=== PATIENT | male | born 1950 | race Caucasian/White ===

== ENCOUNTER 2018-04-18 10:05 | Inpatient (IN) ==
[2018-04-18] MEDS ORDERED: Bisacodyl 10 MG Supp RECTAL PRN (11:18)
[2018-04-18 11:33] LABS: Baso # (Auto) 0.1 th/mm3 (0.0-0.2); Eos # (Auto) 0.2 th/mm3 (0.0-0.4); Eos % (Auto) 2.1 % (0.0-4.0); Hematocrit 51.5 % (39.0-51.0); Hemoglobin 17.3 gm/dL (13.0-17.0); Lymph # (Auto) 2.5 th/mm3 (1.0-4.8); Mean Corpuscular HGB Conc 33.5 % (32.0-36.0); Mean Corpuscular Volume 92.7 fL (80.0-100.0); Mean Platelet Volume 9.8 fL (7.0-11.0); Mono # (Auto) 0.8 th/mm3 (0.0-0.9); Mono % (Auto) 7.6 % (0.0-8.0); Neut # (Auto) 6.5 th/mm3 (1.8-7.7); Neut % (Auto) 64.3 % (16.0-70.0); Platelet Count 190 th/mm3 (150-450); Red Blood Count 5.56 mil/mm3 (4.50-5.90); White Blood Count 10.1 th/mm3 (4.0-11.0)
[2018-04-18 11:43] LABS: Activated Partial Thrombo Time 26.8 sec (24.3-30.1); Prothrombin Time 10.4 sec (9.8-11.6)
[2018-04-18 12:02] LABS: Carbon Dioxide 29.4 meq/L (21.0-32.0); Potassium 4.1 meq/L (3.5-5.1)
[2018-04-18] MEDS ORDERED: fentaNYL Citrate Inj 250 MCG/5 ML Ampul ONE (12:51)
--- NOTE | 2018-04-18 14:11 | P.RAD ---
Post Procedure Progress Note - Pre Procedure Diagnosis (1) Incontinence (2) Unsteady gait - Post Procedure Diagnosis (1) Incontinence (2) Unsteady gait - Procedure Information Procedure Date: 04/18/18 Supervising Radiologist: Yoni Lang MD Estimated blood loss (mL): 1 Anesthesia: Local, Analgesia, Conscious Sedation - Plan of Activity Patient to Unit: [facility] Patient Condition: Good See PACS Report for procedural detail/treatment. Spinal Procedure Lumbar Drain L3-L4 Fluid Description: Clear Puncture Time: 13:40 Findings: Tip at T-11
--- NOTE | 2018-04-18 15:59 | IR ---
EXAM DATE: 04/18/2018 2:41 PM EDT AGE/SEX: 67 years / Male INDICATIONS: Patient presents with gait and mobility abnormalities in need of lumbar drain for [facility] evaluation of normal pressure hydrocephalus. CLINICAL DATA: This is the patient's initial encounter. Patient reports that signs and symptoms have been present for 3 weeks and indicates a pain score of 0/10. Location: , Laterality: MEDICAL/SURGICAL HISTORY: . AFIB, DM, HTN, Neuropathy. . AAA repair, Thyroidectomy, Appendecto my. COMPARISON: No prior exams available for comparison. FLUORO TIME (min): 3.1 IMAGE SERIES: 6 ACCESS SITE: L3-4 SEDATION TIME (min): 30 LUMBAR PUNCTURE TIME: 13:41 hours MEDICATION(S): 3 mg midazolam (Versed) IV 150 mcg fentanyl (Sublimaze) IV DEVICE(S): 14 Slovak lumbar drain catheter Tip at T11 . . PROCEDURE: 1. Fluoroscopically guided lumbar drain placement. 2. Conscious sedation with continuous EKG and oximetry monitoring. The risks, benefits and alternatives to the procedure were explained and verbal and written consent w as obtained. The site was prepped in sterile fashion. Full sterile technique was used, including ca p, mask, sterile gloves and gown and a large sterile sheet. Hand hygiene and 2% chlorhexidine and/or betadine/alcohol prep was utilized per protocol for cutaneous antisepsis. The skin and subcutaneous tissues were infiltrated with local anesthetic solution. With fluoroscopic guidance the lumbar thecal sac was punctured with a 14 gauge Touhy needle and a lum bar drain was placed with its tip at the level as described above and the catheter was sutured in sohail ce. CSF was identified returning from the catheter at the termination of the procedure. Conscious sedation was performed with the prescribed dosages and duration as above in the presence of an independent trained radiology nurse to assist in the monitoring of the patient. EKG and oximetry remained stable throughout the procedure. The patient tolerated the procedure well and there were n o complications. The patient was sent to post anesthesia recovery in stable condition. CONCLUSION: 1. Uncomplicated lumbar drain placement as above. Electronically signed by: Yoni Lang MD 04/18/2018 3:57 PM EDT
[2018-04-18] MEDS: Senna/Docusate Sodium 8.6/50 MG Tablet PO SCH (20:57)
[2018-04-19] MEDS ORDERED: dilTIAZem Inj 125 MG in Sodium Chlor 0.9% Inj 100 ML IV.CONT PRN (10:49)
[2018-04-19] MEDS: Senna/Docusate Sodium 8.6/50 MG Tablet PO SCH ×2 (11:00→21:13)
[2018-04-19] MEDS ORDERED: Dextrose 50% in Water 50 ML Vial IV.PUSH PRN (11:11)
--- NOTE | 2018-04-19 11:45 | P.CONCC ---
History of Present Illness Service: [facility] Consult date: 04/19/18 Requesting Physician: Juan C Mckenzie Reason for Consult: Atrial fibrillation with rapid ventricular response Primary Care Provider: UNKNOWN Chief Complaint: Nausea and vomiting History of Present Illness: 67yM admitted on 04/18/18 for elective lumbar drain placement for normal pressure hydrocephalus. The patient reports several months of feeling "off balance"/ "unsteady on my feet" as well as urinary incontinence. Yesterday, he underwent IR placement of a 14F lumbar drain with tip of catheter at T11 and reports no significant overnight events. However, he says that he has not taken his home medications since yesterday, and this morning woke up feeling diaphoretic, nauseous, and lightheaded. He vomited twice and was found to be in atrial fibrillation with rapid ventricular response; a Halicat was called and the patient was moved to the [facility]. He denies chest pain or pressure, palpitations , dyspnea, or neck/ shoulder pain. PMH: Atrial fibrillation, diabetes mellitus, hypertension, hypothyroidism PSH: Thyroidectomy, open aortic aneurysm repair, appendectomy Family history: Mother with heart disease (patient is unsure of specific diagnosis), father with hydrocephalus Social history: Former smoker, denies alcohol or illicit drug use Review of Systems Constitutional: Denies fever(s) Eyes: Denies blurry vision Ears, Nose, Mouth, and Throat: Reports poor balance Cardiovascular: Denies chest pain Respiratory: Denies shortness of breath Gastrointestinal: Reports constipation Genitourinary: Reports urinary incontinence Musculoskeletal: Denies back pain Neurologic: Reports dizziness Endocrine: Reports excessive sweating PMFSH - History History Provided By: Patient - Medical History Medical History: Medical History (Last Reviewed 04/18/18 @ 17:10 by Mounika Andujar PT) Atrial fibrillation Diabetes Hydrocephalus Hypertension Neuropathy - Surgical History Surgical History: Surgical History (Last Reviewed 04/18/18 @ 17:10 by Mounika Andujar PT) H/O thyroidectomy History of appendectomy S/P AAA repair - Tobacco History Second Hand Smoke Exposure: No Tobacco Use In Past 30 Days: No Smoking Status: Former smoker - Alcohol History How Often Do You Have a Drink Containing Alcohol: Monthly or less - Substance Use History Substance History: No History of Abuse - Travel History Recent Travel in the [facility] Within the Last 8 Weeks: No Recent Travel Out of the Country Within the Last 8 Weeks: No Medications and Allergies Active Medications: Active Medications Acetaminophen/Butalbital/Caffeine (Fioricet 50-325-40) 1 tab PO Q6H PRN PRN Reason: HEADACHE Al Hydroxide/Mg Hydroxide (Milk Of Magnesia Liq) 30 ml PO Q12H PRN PRN Reason: Mild Constipation Bisacodyl (Dulcolax Supp) 10 mg RECTAL DAILY PRN PRN Reason: SEVERE CONSITIPATION Dextrose (D50w Vial) 50 ml IV.PUSH UNSCH PRN PRN Reason: PER HYPOGLYCEMIA PROTOCOL Diltiazem HCl (Cardizem) 30 mg PO QID [facility] Gabapentin (Neurontin) 300 mg PO TID [facility] Glucagon (Glucagon Inj) 1 mg OTHER PRN PRN PRN Reason: for Hypoglycemia Protocol Insulin Human Regular (Novolin R Correctional Sugar Inj) 0 units SQ ACHS HAFSA; Protocol Lactulose (Lactulose Liq) 30 ml PO DAILY PRN PRN Reason: SEVERE CONSITIPATION Metoclopramide HCl (Reglan Inj) 5 mg IV.PUSH Q8H PRN; Protocol PRN Reason: NAUSEA OR VOMITING Non-Formulary Medication (Levothyroxine [Levothyroxine]) 125 mcg PO DAILY [facility] Non-Formulary Medication (Metoprolol Succinate [Metoprolol Succinate]) 100 mg PO BID [facility] Senna/Docusate Sodium (Olivia-Colace) 1 tab PO BID [facility] Last Admin: 04/19/18 11:00 Dose: Not Given Sennosides (Senokot) 17.2 mg PO Q12H PRN PRN Reason: Moderate Constipation Allergies Allergy/AdvReac Type Severity Reaction Status Date / Time No Known Allergies Allergy Unverified 04/18/18 10:49 Home Medications Medication Instructions Recorded Confirmed Type apixaban [Eliquis] 5 mg PO BID 04/18/18 04/18/18 History diltiazem HCl 30 mg PO QID 04/18/18 04/18/18 History exenatide microspheres [Bydureon] 2 mg SUB-Q Q7D 04/18/18 04/18/18 History gabapentin 300 mg PO TID 04/18/18 04/18/18 History insulin detemir U-100 [Levemir 48 unit SUB-Q DAILY 04/18/18 04/18/18 History U-100 Insulin] levothyroxine 125 mcg PO DAILY 04/18/18 04/18/18 History metformin 1,000 mg PO BID 04/18/18 04/18/18 History metoprolol succinate 100 mg PO BID 04/18/18 04/18/18 History Physical Exam Vital signs: Vital Signs 04/18/18 14:10 04/18/18 14:25 04/18/18 16:00 Temperature 98.6 F 97.1 F L Pulse Rate 95 H 76 99 H Respiratory Rate 20 18 20 Blood Pressure 131/96 H 157/91 H 135/90 Pulse Oximetry 94 L 95 96 04/18/18 20:00 04/19/18 00:00 04/19/18 04:00 Temperature 98.2 F 98 F 98.1 F Pulse Rate 111 H 83 105 H Respiratory Rate 20 20 20 Blood Pressure 162/96 H 154/96 H 159/103 H Pulse Oximetry 99 96 98 04/19/18 08:00 Temperature 98.7 F Pulse Rate 74 Respiratory Rate 18 Blood Pressure 159/85 H Pulse Oximetry 96 Intake & Output 04/18/18 04/19/18 04/19/18 18:59 06:59 18:59 Intake Total 240 / 240 Output Total 217 / 217 625 / 625 80 / 80 Balance -625 / -625 -80 / -80 Weight 104.326 kg Intake: Oral 240 / 240 Output: Urine 202 / 202 600 / 600 Wound Drainage 80 / 80 Left Lower Back 80 / 80 Other: # Voids 1 Weight On Admission 104.326 kg Narrative: GEN: Lying in right lateral recumbent position, no acute distress HEENT: NCAT, PERRL NECK: Trachea midline CARDIO: Well-healed midline sternotomy scar. Irregularly irregular, tachy to 130s-140s PULM: Clear to auscultation bilaterally, no wheezing ABD/GI: Soft, non-tender in all quadrants EXT: No lower extremity edema, warm and well-perfused SKIN: No rashes or lesions noted NEURO: A&Ox3, speech clear and fluent, answers questions appropriately. Lumbar drain present with clean/ dry/ intact bandages, clear CSF noted in bag. PSYCH: Appropriate affect Assessment and Plan - Assessment and Plan Plan: EKG Interpretation Rate: 100-150 BPM Rhythm: Atrial fibrillation Mosby: Normal Intervals: No blocks, QTc 440 ms Q waves: None T waves: Inverted in III, aVF ST segments: <1 mm depressions in V3-V6, no reciprocal elevations Impression: Atrial fibrillation with rapid ventricular response, no previous EKG available for comparison. Assessment: 67yM with known history of A fib, now in A fib with RVR s/p lumbar drain for NPH Plan by systems: Neuro: * Lumbar drain in place, ordered to be clamped PRN to maintain no more than 80 mL of drainage in an 8 hour period, leveled at shoulder * Patient complaining of headache and nausea, will order PRN reglan/ fioricet * Continue home dose of gabapentin for neuropathic pain Cardio: * surveillance system monitor * IV diltiazem bolus followed by gtt to maintain HR <100 BPM, restart home PO diltiazem/ metoprolol * Patient reports no chest pain/pressure, RVR likely related to missed doses of home meds Pulm: * Incentive spirometer F/E/N: * Diabetic diet * Hold home metformin, SSI * Check FSBG now Renal/ : * No acute issues Endo: * SSI * Continue home dose of levothyroxine PROPHY: * No indication for GI prophylaxis as patient is tolerating PO * SCDs, hold DVT prophylaxis until cleared by IR/ neurosurg Overall: This patient requires intensive care for atrial fibrillation with rapid ventricular response. He will need titratable IV medications, cardiac monitoring, and re-evaluation at frequent intervals to control his HR and prevent further decompensation. Counseling/ Coordination of Care: Total critical care time spent is 50 minutes. This includes examining the patient, gathering history from someone other than the patient (i.e. chart review), managing the patient's blood pressure and heart rate via titratable drip(s), ordering and interpreting radiologic studies, ordering and interpreting laboratory values, re-evaluation at frequent intervals, and documentation. Amount of time is separate from teaching, counseling the patient and/or family, and exclusive of procedures. Code Status: Full
[2018-04-19 12:21] LABS: Baso # (Auto) 0.1 th/mm3 (0.0-0.2); Baso % (Auto) 0.8 % (0.0-2.0); Eos % (Auto) 0.2 % (0.0-4.0); Hematocrit 51.8 % (39.0-51.0); Hemoglobin 17.7 gm/dL (13.0-17.0); Lymph # (Auto) 1.2 th/mm3 (1.0-4.8); Mean Corpuscular HGB Conc 34.2 % (32.0-36.0); Mean Corpuscular Hemoglobin 31.1 pg (27.0-34.0); Mean Corpuscular Volume 90.9 fL (80.0-100.0); Mean Platelet Volume 9.5 fL (7.0-11.0); Mono # (Auto) 0.6 th/mm3 (0.0-0.9); Neut # (Auto) 9.2 th/mm3 (1.8-7.7); Platelet Count 172 th/mm3 (150-450); White Blood Count 11.1 th/mm3 (4.0-11.0)
[2018-04-19 12:40] LABS: Alanine Aminotransferase 35 U/L (12-78); Albumin 3.5 g/dL (3.4-5.0); Anion Gap 11 meq/L (5-15); Aspartate Aminotransferase 20 U/L (15-37); Blood Urea Nitrogen 17 mg/dL (7-18); Carbon Dioxide 27.8 meq/L (21.0-32.0); Chloride 101 meq/L (98-107); Glomerular Filtration Rate 50 mL/min (>89); Glucose,Random 178 mg/dL (74-106); Magnesium 1.8 mg/dL (1.5-2.5); Potassium 4.4 meq/L (3.5-5.1); Sodium 140 meq/L (136-145)
[2018-04-19 12:43] LABS: Alkaline Phosphatase 99 U/L (45-117); Total Protein 7.6 g/dL (6.4-8.2)
[2018-04-19] MEDS ORDERED: dilTIAZem 30 MG Tablet PO SCH (13:00)
[2018-04-19] MEDS ORDERED: Gabapentin 300 MG Capsule PO SCH (13:00)
[2018-04-19] MEDS ORDERED: Levothyroxine 125 MCG Tablet PO SCH (13:30)
[2018-04-19] MEDS: Insulin NovoLIN Regular Correctional Sugar Inj SQ SCH ×3 (13:41→21:12)
[2018-04-19] MEDS: Gabapentin 300 MG Capsule PO SCH ×2 (13:44→18:01)
[2018-04-19] MEDS: dilTIAZem 30 MG Tablet PO SCH ×3 (13:45→21:12)
[2018-04-19] MEDS: Metoprolol Tartrate 100 MG Tablet PO SCH ×2 (14:56→21:12)
--- NOTE | 2018-04-19 17:46 | ECG ---
Date Performed: 04/19/2018 Time Performed: 09:41:56 PTAGE: 67 years EKG: ATRIAL FIBRILLATION WITH RAPID VENTRICULAR RESPONSE NONSPECIFIC ST & T-WAVE ABNORMALITY CON EDUCATIONAL RESOURCE COORDINATOR INFERIOR AND ANTEROLATERAL ISCHEMIA ABNORMAL ECG NO PREVIOUS TRACING DOCTOR: Joe Muniz Interpretating Date/Time 04/19/2018 18:03:02
--- NOTE | 2018-04-19 18:01 | P.PNNS ---
Subjective Interval history: Pt awake and alert. He states he is feeling better. He had gone into RVR this morning has history of afib. He was given Cardizem IV and drip and rate controlled and now just on his oral Cardizem. Pts drain remained clamped today since he wasn't feeling well. He request medication to help him sleep tonight and states he has taken Ambien before. Physical Exam Vital signs: Vital Signs 04/18/18 20:00 04/19/18 00:00 04/19/18 04:00 Temperature 98.2 F 98 F 98.1 F Pulse Rate 111 H 83 105 H Respiratory Rate 20 20 20 Blood Pressure 162/96 H 154/96 H 159/103 H Pulse Oximetry 99 96 98 04/19/18 08:00 04/19/18 10:45 04/19/18 12:00 Temperature 98.7 F 98.8 F Pulse Rate 74 136 H 96 H Respiratory Rate 18 16 Blood Pressure 159/85 H 128/75 Pulse Oximetry 96 94 L 04/19/18 14:00 04/19/18 16:00 Temperature 98.9 F Pulse Rate 118 H 96 H Respiratory Rate 13 Blood Pressure 147/96 H Pulse Oximetry 95 Intake & Output 04/18/18 04/19/18 04/19/18 18:59 06:59 18:59 Intake Total 240 / 240 Output Total 217 / 217 625 / 625 120 / 120 Balance -625 / -625 -120 / -120 Weight 104.326 kg Intake: Oral 240 / 240 Output: Urine 202 / 202 600 / 600 Wound Drainage 120 / 120 Left Lower Back 120 / 120 Other: # Voids 1 Date of Last Bowel Movement 04/17/18 Weight On Admission 104.326 kg - Constitutional no acute distress, obese, cooperative - Routine HEENT Exam Head: Present: normocephalic, atraumatic Eye: Present: PERRL. Absent: conjunctival icterus ENT: Present: oropharynx clear - Routine Neck Exam Present: trachea midline - Routine Respiratory Exam Present: CTA bilaterally, respiratory distress, rhonchi, wheezes - Routine Cardiovascular Exam Present: S1, S2, irregularly irregular. Absent: murmur - Routine Abdominal Exam Present: soft, normoactive bowel sounds. Absent: distended, rigid - Routine Skin Exam Absent: cyanosis, erythema - Routine Neurological Exam Present: alert, oriented X3, moving all extremities, normal speech. Absent: motor deficit, altered mental status - Routine Psychiatric Exam Present: normal affect. Absent: anxious, agitated Assessment and Plan - Assessment (1) Incontinence Code(s): R32 - Unspecified urinary incontinence Status: Acute (2) Unsteady gait Code(s): R26.81 - Unsteadiness on feet Status: Acute - Plan Pt with a history of unsteady gait, urinary incontinence, and deficits with memory being evaluated for NPH s/p lumbar spinal drain placement. Pt didn't get his home meds and has a history of afib and went into RVR. P: We will reopen his drain with the parameters that were ordered initially for spinal drainage. Restart PT tomorrow am and then remove spinal drain and lay flat for 6 hours. Discussed with pt and family at bedside. Appreciate utilities manager assistance.
[2018-04-19] MEDS: Butalbital/APAP/Caff 50/325/40 MG Tablet PO PRN (18:46)
[2018-04-19] MEDS ORDERED: Zolpidem Tartrate 5 MG Tablet PO PRN (20:00)
[2018-04-19] MEDS ORDERED: Non-Formulary Drug (Metformin [Metformin] 1,000 MG) PO SCH (21:00)
--- NOTE | 2018-04-19 22:41 | ECG ---
Date Performed: 04/19/2018 Time Performed: 14:35:06 PTAGE: 67 years EKG: Atrial fibrillation with rapid ventricular response. Inferior/lateral ST-T changes are nons pecific Abnormal ECG PREVIOUS TRACING : 04/19/2018 09.41 Since the previous tracing, no significant change noted DOCTOR: Roni Roberts Interpretating Date/Time 04/19/2018 22:39:58
[2018-04-20] MEDS: Butalbital/APAP/Caff 50/325/40 MG Tablet PO PRN ×2 (03:19→09:10)
[2018-04-20 05:25] LABS: Hematocrit 52.6 % (39.0-51.0); Hemoglobin 17.8 gm/dL (13.0-17.0); Mean Corpuscular HGB Conc 33.9 % (32.0-36.0); Mean Corpuscular Hemoglobin 31.2 pg (27.0-34.0); Mean Platelet Volume 9.4 fL (7.0-11.0); Platelet Count 175 th/mm3 (150-450); Red Blood Count 5.71 mil/mm3 (4.50-5.90); Red Cell Distribution Width 13.9 % (11.6-17.2); White Blood Count 9.8 th/mm3 (4.0-11.0)
[2018-04-20 05:55] LABS: Calcium 8.8 mg/dL (8.5-10.1); Carbon Dioxide 27.4 meq/L (21.0-32.0); Magnesium 1.8 mg/dL (1.5-2.5); Potassium 4.4 meq/L (3.5-5.1)
[2018-04-20] MEDS ORDERED: Levothyroxine 125 MCG Tablet PO SCH (06:00)
[2018-04-20] MEDS: dilTIAZem 30 MG Tablet PO SCH ×3 (09:09→17:08)
[2018-04-20] MEDS: Metoprolol Tartrate 100 MG Tablet PO SCH (09:09)
[2018-04-20] MEDS: Gabapentin 300 MG Capsule PO SCH ×3 (09:09→17:08)
[2018-04-20] MEDS: Senna/Docusate Sodium 8.6/50 MG Tablet PO SCH (09:09)
[2018-04-20] MEDS: Insulin NovoLIN Regular Correctional Sugar Inj SQ SCH ×3 (09:32→17:13)
[2018-04-20 16:29] VITALS: BP 163/95; RESP 22; TEMP 98.3; O2SAT 100
[2018-04-20] MEDS ORDERED: hydrALAZINE HCl Inj 20 MG/ML Vial IV.PUSH PRN (16:34)
--- NOTE | 2018-04-20 16:40 | P.PNCC ---
Subjective Subjective Remarks/Hospital Course: 67yM admitted on 04/18/18 for elective lumbar drain placement for normal pressure hydrocephalus. The patient reports several months of feeling "off balance"/ "unsteady on my feet" as well as urinary incontinence. Yesterday, he underwent IR placement of a 14F lumbar drain with tip of catheter at T11 and reports no significant overnight events. However, he says that he has not taken his home medications since yesterday, and this morning woke up feeling diaphoretic, nauseous, and lightheaded. He vomited twice and was found to be in atrial fibrillation with rapid ventricular response; a Halicat was called and the patient was moved to the [facility]. He denies chest pain or pressure, palpitations , dyspnea, or neck/ shoulder pain. 04/20: Heart rate control much improved on Cardizem and Inderal oral medication. Atrial fibrillation is chronic. Breathing comfortably. Morning labs normal, potassium 4.4. PMH: Atrial fibrillation, diabetes mellitus, hypertension, hypothyroidism Objective Vital Signs / I&O: Vital Signs 04/19/18 18:00 04/19/18 20:00 04/19/18 22:00 Temperature 98.8 F Pulse Rate 108 H 95 H 100 H Respiratory Rate 23 Blood Pressure 160/99 H Pulse Oximetry 94 L 04/20/18 00:00 04/20/18 02:00 04/20/18 04:00 Temperature 98.6 F 98.7 F Pulse Rate 88 88 98 H Respiratory Rate 15 22 Blood Pressure 151/93 H 165/93 H Pulse Oximetry 92 L 92 L 04/20/18 06:00 04/20/18 08:00 04/20/18 10:00 Temperature 98.3 F Pulse Rate 93 H 96 H 94 H Respiratory Rate 18 Blood Pressure 162/70 H Pulse Oximetry 94 L 04/20/18 12:00 04/20/18 14:00 04/20/18 16:00 Temperature 98.2 F 98.3 F Pulse Rate 89 89 91 H Respiratory Rate 24 22 Blood Pressure 164/97 H 163/95 H Pulse Oximetry 94 L 100 Intake & Output 04/19/18 04/20/18 04/20/18 18:59 06:59 18:59 Intake Total 590 / 590 Output Total 630 / 630 430 / 430 Balance -40 / -40 -430 / -430 Weight 106.6 kg Intake: Oral 590 / 590 Output: Urine 500 / 500 350 / 350 Wound Drainage 130 / 130 80 / 80 Left Lower Back 130 / 130 80 / 80 Other: # Voids 1 Date of Last Bowel Movement 04/17/18 04/17/18 04/20/18 # Bowel Movements 0 Result Diagrams: 04/20/18 05:11 04/20/18 05:11 Objective Remarks: Narrative: GEN: Lying in right lateral recumbent position, no acute distress HEENT: NCAT, PERRL NECK: Trachea midline, no obstructive noises, airway widely patent. CARDIO: Well-healed midline sternotomy scar. Irregularly irregular, rate 90s PULM: Clear to auscultation bilaterally, no wheezing, comfortable respiratory pattern. ABD/GI: Soft, non-tender, no guarding, bowel sounds active. EXT: No lower extremity edema, warm and well-perfused SKIN: No rashes or lesions noted NEURO: A&Ox3, speech clear and fluent, answers questions appropriately. Lumbar drain present with clean/ dry/ intact bandages, clear CSF noted in bag. PSYCH: Appropriate affect, conversant Assessment and Plan - Assessment and Plan Plan: Assessment: 67yM with known history of A fib, now in A fib with RVR s/p lumbar drain insertion for NPH Plan by systems: Neuro: * Lumbar drain in place, ordered to be clamped PRN to maintain no more than 80 mL of drainage in an 8 hour period, leveled at shoulder * Patient complaining of headache and nausea, will order PRN reglan/ fioricet * Continue home dose of gabapentin for neuropathic pain Cardio: * marble polisher * IV diltiazem bolus followed by gtt to maintain HR <100 BPM, restart home PO diltiazem/ metoprolol * Patient reports no chest pain/pressure, RVR likely related to missed doses of home meds Pulm: * Incentive spirometer F/E/N: * Diabetic diet * Hold home metformin, SSI * Check FSBG now Renal/ : * No acute issues Endo: * SSI * Continue home dose of levothyroxine PROPHY: * No indication for GI prophylaxis as patient is tolerating PO * SCDs, hold DVT prophylaxis until cleared by IR/ neurosurg Overall impression: Stable hemodynamic and respiratory function now that rapid ventricular response is controlled.
--- NOTE | 2018-04-20 17:06 | P.PNNS ---
Subjective Interval history: Pt awake and alert. Complains of headache. Currently no nausea. He states he walked better with PT today. <Juan C Mckenzie - Last Filed: 04/20/18 16:59> Physical Exam Vital signs: Vital Signs 04/19/18 18:00 04/19/18 20:00 04/19/18 22:00 Temperature 98.8 F Pulse Rate 108 H 95 H 100 H Respiratory Rate 23 Blood Pressure 160/99 H Pulse Oximetry 94 L 04/20/18 00:00 04/20/18 02:00 04/20/18 04:00 Temperature 98.6 F 98.7 F Pulse Rate 88 88 98 H Respiratory Rate 15 22 Blood Pressure 151/93 H 165/93 H Pulse Oximetry 92 L 92 L 04/20/18 06:00 04/20/18 08:00 04/20/18 10:00 Temperature 98.3 F Pulse Rate 93 H 96 H 94 H Respiratory Rate 18 Blood Pressure 162/70 H Pulse Oximetry 94 L 04/20/18 12:00 04/20/18 14:00 04/20/18 16:00 Temperature 98.2 F 98.3 F Pulse Rate 89 89 91 H Respiratory Rate 24 22 Blood Pressure 164/97 H 163/95 H Pulse Oximetry 94 L 100 Intake & Output 04/19/18 04/20/18 04/20/18 18:59 06:59 18:59 Intake Total 590 / 590 Output Total 630 / 630 430 / 430 Balance -40 / -40 -430 / -430 Weight 106.6 kg Intake: Oral 590 / 590 Output: Urine 500 / 500 350 / 350 Wound Drainage 130 / 130 80 / 80 Left Lower Back 130 / 130 80 / 80 Other: # Voids 1 Date of Last Bowel Movement 04/17/18 04/17/18 04/20/18 # Bowel Movements 0 - Constitutional no acute distress, obese, cooperative - Routine HEENT Exam Head: Present: normocephalic, atraumatic Eye: Present: PERRL. Absent: conjunctival icterus ENT: Present: oropharynx clear - Routine Neck Exam Present: trachea midline - Routine Respiratory Exam Present: CTA bilaterally. Absent: rhonchi, wheezes - Routine Cardiovascular Exam Present: irregularly irregular. Absent: S1, S2, murmur - Routine Abdominal Exam Present: soft, normoactive bowel sounds. Absent: tenderness, firm - Routine Skin Exam Absent: cyanosis, erythema - Routine Neurological Exam Present: alert, oriented X3, moving all extremities, normal speech. Absent: sensory deficit, motor deficit, altered mental status - Routine Psychiatric Exam Present: normal affect, cooperative. Absent: agitated <Juan C Mckenzie - Last Filed: 04/20/18 16:59> Vital signs: Vital Signs 04/19/18 20:00 04/19/18 22:00 04/20/18 00:00 Temperature 98.8 F 98.6 F Pulse Rate 95 H 100 H 88 Respiratory Rate 23 15 Blood Pressure 160/99 H 151/93 H Pulse Oximetry 94 L 92 L 04/20/18 02:00 04/20/18 04:00 04/20/18 06:00 Temperature 98.7 F Pulse Rate 88 98 H 93 H Respiratory Rate 22 Blood Pressure 165/93 H Pulse Oximetry 92 L 04/20/18 08:00 04/20/18 10:00 04/20/18 12:00 Temperature 98.3 F 98.2 F Pulse Rate 96 H 94 H 89 Respiratory Rate 18 24 Blood Pressure 162/70 H 164/97 H Pulse Oximetry 94 L 94 L 04/20/18 14:00 04/20/18 16:00 04/20/18 18:00 Temperature 98.3 F Pulse Rate 89 91 H 103 H Respiratory Rate 22 Blood Pressure 163/95 H Pulse Oximetry 100 Intake & Output 04/19/18 04/20/18 04/20/18 18:59 06:59 18:59 Intake Total 590 / 590 360 / 360 Output Total 630 / 630 430 / 430 676 / 676 Balance -40 / -40 -430 / -430 -316 / -316 Weight 106.6 kg Intake: Oral 590 / 590 360 / 360 Output: Urine 500 / 500 350 / 350 675 / 675 Stool 1 / Wound Drainage 130 / 130 80 / 80 Left Lower Back 130 / 130 80 / 80 Other: # Voids 1 3 Date of Last Bowel Movement 04/17/18 04/17/18 04/20/18 # Bowel Movements 0 <Fitz Orr - Last Filed: 04/20/18 18:47> Assessment and Plan - Assessment (1) Incontinence Code(s): R32 - Unspecified urinary incontinence Status: Acute (2) Unsteady gait Code(s): R26.81 - Unsteadiness on feet Status: Acute - Plan Pt with a history of unsteady gait, urinary incontinence, and deficits with memory being evaluated for NPH s/p lumbar spinal drain placement. Pt didn't get his home meds and has a history of afib and went into RVR. His HR is improved now. He is in chronic Afib. P: Pt was positioned on his side and the lumbar drain was clamped. The lumbar drain stitches were removed. A steristrip was placed over the drain exit site. He was placed on bedrest for 6 hours. <Juan C Mckenzie - Last Filed: 04/20/18 16:59> - Attending Attestation The exam, history, and the medical decision-making described in the above note were completed with the assistance of the mid-level provider. I reviewed and agree with the findings presented. I attest that I had a [id number] encounter with the patient on the same day, and personally performed and documented my assessment and findings in the medical record. Heart rate is well controlled and overall feels much better. Patient noted improvement in his gait when he ambulated with physical therapy today. Lumbar drain has been removed for over 6 hours and he denies any aches at this point. He is requesting to be discharged home accordingly we will follow-up in the office in 2 weeks. Discussed with at bedside. <Fitz Orr - Last Filed: 04/20/18 18:47>
[2018-04-20 18:28] VITALS: PULSE 103
== END 2018-04-20 20:13 | disposition home or self-care (01) ==
LOC: HROP 10:05 → HRIP 10:22 → N05 15:24 → N03 04-19 10:37
PROVIDERS: ADMIT Neurological Surgery; ATTEND Neurological Surgery

== ENCOUNTER 2018-05-20 05:49 | Inpatient (IN) ==
[2018-05-20] MEDS ORDERED: Insulin NovoLIN Regular Correctional Sugar Inj SQ ONE (06:21)
[2018-05-20] MEDS ORDERED: Chlorhexidine Gluconate 2% 1 Pack (2 Cloths) TOPICAL ONE ×2 (06:21→08:33)
[2018-05-20] MEDS ORDERED: Metoprolol Tartrate 25 MG Tablet PO ONE (06:21)
[2018-05-20] MEDS ORDERED: Gelatin Size 100 Topical Foam ONE (06:33)
[2018-05-20] MEDS ORDERED: Thrombin Topical Soln 5,000 UNIT Vial TOPICAL ONE (06:33)
[2018-05-20] MEDS ORDERED: Bupivacaine/Epinephrine 0.5% Inj 50 ML Vial ONE (06:33)
[2018-05-20] MEDS ORDERED: Vancomycin Inj 1,000 MG in Sodium Chlor 0.9% Inj 250 ML IV.SIG SCH (07:00)
[2018-05-20] MEDS ORDERED: Sodium Chlor 0.9% Inj 500 ML IV.SIG SCH (07:00)
[2018-05-20 07:42] LABS: Baso # (Auto) 0.1 th/mm3 (0.0-0.2); Baso % (Auto) 1.1 % (0.0-2.0); Eos # (Auto) 0.3 th/mm3 (0.0-0.4); Eos % (Auto) 3.6 % (0.0-4.0); Hematocrit 50.5 % (39.0-51.0); Hemoglobin 16.9 gm/dL (13.0-17.0); Lymph # (Auto) 2.5 th/mm3 (1.0-4.8); Lymph % (Auto) 31.8 % (9.0-44.0); Mean Corpuscular HGB Conc 33.4 % (32.0-36.0); Mean Corpuscular Hemoglobin 31.1 pg (27.0-34.0); Mean Corpuscular Volume 93.1 fL (80.0-100.0); Mean Platelet Volume 9.9 fL (7.0-11.0); Mono # (Auto) 0.6 th/mm3 (0.0-0.9); Mono % (Auto) 7.2 % (0.0-8.0); Neut # (Auto) 4.5 th/mm3 (1.8-7.7); Neut % (Auto) 56.3 % (16.0-70.0); Platelet Count 165 th/mm3 (150-450); Red Blood Count 5.43 mil/mm3 (4.50-5.90); Red Cell Distribution Width 14.5 % (11.6-17.2)
[2018-05-20 07:54] LABS: Prothrombin Time 10.3 sec (9.8-11.6)
[2018-05-20 08:00] LABS: Alanine Aminotransferase 40 U/L (12-78); Albumin 3.6 g/dL (3.4-5.0); Anion Gap 8 meq/L (5-15); Aspartate Aminotransferase 20 U/L (15-37); Blood Urea Nitrogen 19 mg/dL (7-18); Calcium 8.8 mg/dL (8.5-10.1); Carbon Dioxide 26.8 meq/L (21.0-32.0); Chloride 107 meq/L (98-107); Glomerular Filtration Rate 48 mL/min (>89); Glucose,Random 131 mg/dL (74-106); Potassium 4.1 meq/L (3.5-5.1); Sodium 142 meq/L (136-145)
[2018-05-20 08:02] LABS: Alkaline Phosphatase 82 U/L (45-117); Total Protein 7.3 g/dL (6.4-8.2)
[2018-05-20] MEDS ORDERED: ceFAZolin 2 GM Premix Inj 2 GM/50 ML PIGGYBACK IV.SIG ONE (08:03)
[2018-05-20] MEDS ORDERED: ceFAZolin 2 GM IV; once IV.SIG SCH (09:00)
[2018-05-20] MEDS ORDERED: Phenylephrine/NS 1000 MCG/10ML Syringe IV.PUSH ONE (10:23)
[2018-05-20] MEDS ORDERED: Neostigmine Inj 5 MG/5 ML Syringe IV.PUSH ONE (10:23)
[2018-05-20] MEDS ORDERED: Lidocaine PF 1% Inj 5 ML Syringe OTHER ONE (10:23)
[2018-05-20] MEDS ORDERED: Sodium Chlor 0.9% Inj 250 ML IV.CONT ONE (10:23)
[2018-05-20] MEDS ORDERED: Glycopyrrolate Inj 1 MG/5 ML Syringe IV.PUSH ONE (10:23)
[2018-05-20] MEDS ORDERED: Bisacodyl 10 MG Supp RECTAL PRN (12:40)
[2018-05-20] MEDS ORDERED: Acetaminophen 325 MG Tablet PO PRN (12:40)
[2018-05-20] MEDS ORDERED: Menthol 5.8 MG Lozenge BUCCAL PRN (12:40)
[2018-05-20] MEDS ORDERED: Morphine Sulfate Inj 2 MG/ML Vial IV.PUSH PRN (12:40)
[2018-05-20] MEDS ORDERED: Dextrose 50% in Water 50 ML Vial IV.PUSH PRN (12:40)
[2018-05-20] MEDS ORDERED: Aluminum/Magnesium/Simethacone Susp 30 ML UDC PO PRN (12:40)
[2018-05-20] MEDS ORDERED: fentaNYL Citrate Inj 100 MCG/2 ML Ampul ONE (12:42)
--- NOTE | 2018-05-20 12:48 | P.OP ---
- Preoperative Diagnosis (1) Normal pressure hydrocephalus Date of procedure: 05/20/18 Procedure: Right frontal ventriculoperitoneal shunt placement with Codman programmable valve Anesthesia: CINDY Surgeon: Fitz Orr MD Corporate Associate Attorney: Nishi Thorne Estimated blood loss (mL): 10 Operation and Findings: Following administration of general endotracheal anesthesia, patient was placed in a supine position and a Rivera catheter placed along with sequential compression devices and antibiotics administered intravenously. The head secured in donut and turned 30 to the left side and a shoulder roll placed in the right side and all pressure points adequately padded. The right frontal parietal occipital anterior neck and chest and abdomen area was shaved and prepped with a Betadine solution and Chloraprep. Draping with Ioban also undertaken along with the usual sterile draping. Using landmarks of 11 cm behind the nasion and 3 cm right of the midline a curvilinear right frontal incision was made after infiltrating the skin was 0.5% Marcaine with epinephrine solution. A ana hole was made with an automatic diabetes physician and the underlying dura cauterized with bipolar cautery and opened in a cruciate format. Right subcostal abdominal incision site was then infiltrated with 0.5% Marcaine with epinephrine solution and incision made extending down through the anterior fascia of the rectus sheath and then the posterior fascia also incised and the peritoneal wall identified and also incised in a 3-0 silk pursestring suture was been placed around the opening. A subcutaneous tunnel was then created between the frontal and the abdominal incision site with a small interim incision in the neck and the bactiseal Codman peritoneal catheter was then tunneled through. The catheter was connected to a Hakim Codman programmable valve set at 100 mm a water setting with the anti-siphon device. The ventricular catheter was then passed the 6 cm in depth and clear CSF encountered and this was then connected to the proximal reservoir valve with a 2 -0 silk tie. Good distal CSF flow run off was noted from the peritoneal catheter which was then dropped into the peritoneum and the pursestring suture was tied along with the approximation of the anterior rectus sheath with 3-0 Vicryl interposition and 3-0 Vicryl subcuticular sutures also placed an interrupted fashion and final skin closure with hank. Incision sites were irrigated with the saline solution prior to closure. The right frontal and small neck incision areas were then also approximated with 3-0 Vicryl galeal stitches and hank. Sterile dressings then applied and the patient extubated and taken recovery room. There were no intraoperative complications and all sponge and needle, was correct at the end of the procedure. Estimated blood loss less than 10 cc.
[2018-05-20] MEDS ORDERED: *morphine SULFATE 4 MG/ML PERIprocedure ONLY ONE ×3 (12:51→14:24)
[2018-05-20] MEDS ORDERED: *Meperidine Inj 25 MG/ML Vial PERIprocedural Use ONLY ONE (13:12)
[2018-05-20] MEDS ORDERED: EXENATIDE 2 MG SQ SCH (15:00)
--- NOTE | 2018-05-20 16:13 | CT ---
EXAM DATE: 05/20/2018 4:06 PM EDT AGE/SEX: 67 years / Male INDICATIONS: Hydrocephalus. CLINICAL DATA: This is the patient's initial encounter. Patient reports that signs and symptoms have been present for 1 day and indicates a pain score of 4/10. MEDICAL/SURGICAL HISTORY: Cardiovascular disease. Diabetes. Hypertension. Neuropathy. Abdominal aortic aneurysm repair. Appendectomy. Thyroidectomy. RADIATION DOSE: 66.38 CTDI (mGy) COMPARISON: No prior exams available for comparison. TECHNIQUE: CT of the head without contrast. Using automated exposure control and adjustment of the mA and/or kV according to patient size, radiation dose was kept as low as reasonably achievable to ob tain optimal diagnostic quality images. DICOM format image data is available electronically for revi ew and comparison. FINDINGS: Cerebrum: There is interval placement of a right frontal ventriculostomy tube. There is a small amoun t of air in the frontal horn right lateral ventricle and in the anterior subarachnoid space. No hemor rhage or mass effect. Mild hydrocephalus. Posterior Fossa: The cerebellum and brainstem are intact. The 4th ventricle is midline. The cerebellopontine angle is unremarkable. Extracranial: The visualized portion of the orbits is intact. Skull: The calvaria is intact. No evidence of skull fracture. CONCLUSION: 1. Placement of right frontal ventriculostomy with trace pneumocephalus as above. Mild hydrocephalus . . Electronically signed by: Goyo Tate MD 05/20/2018 4:12 PM EDT
[2018-05-20] MEDS: Gabapentin 300 MG Capsule PO SCH ×2 (17:32→22:31)
[2018-05-20] MEDS: dilTIAZem 30 MG Tablet PO SCH ×3 (17:32→22:29)
[2018-05-20] MEDS ORDERED: Morphine Inj 30 MG/30 ML PCA.VIAL PCA ONE (17:41)
[2018-05-20] MEDS: Insulin NovoLOG Aspart Correctional Sugar Inj SQ SCH ×2 (19:19→22:26)
[2018-05-20] MEDS ORDERED: Zolpidem Tartrate 5 MG Tablet PO PRN (21:00)
[2018-05-20] MEDS: Senna/Docusate Sodium 8.6/50 MG Tablet PO SCH (21:45)
[2018-05-20] MEDS: Sod Chloride 0.9% Inj 1,000 ML IV.SIG SCH (22:30)
[2018-05-21] MEDS ORDERED: Levothyroxine 125 MCG Tablet PO SCH (06:00)
[2018-05-21 07:38] VITALS: RESP 18
[2018-05-21] MEDS: Sod Chloride 0.9% Inj 1,000 ML IV.SIG SCH (08:32)
[2018-05-21] MEDS: dilTIAZem 30 MG Tablet PO SCH ×2 (08:38→12:48)
[2018-05-21] MEDS: Senna/Docusate Sodium 8.6/50 MG Tablet PO SCH (08:38)
[2018-05-21] MEDS: Gabapentin 300 MG Capsule PO SCH ×2 (08:38→12:48)
[2018-05-21] MEDS: Insulin NovoLOG Aspart Correctional Sugar Inj SQ SCH ×2 (08:39→11:25)
--- NOTE | 2018-05-21 12:22 | P.PNNS ---
Subjective Interval history: Did well overnight, walked the rogers, no pain Physical Exam Vital signs: Vital Signs 05/20/18 12:28 05/20/18 12:45 05/20/18 13:00 Temperature 98.7 F Pulse Rate 109 H 105 H 125 H Respiratory Rate 20 18 18 Blood Pressure 135/79 136/89 114/90 Pulse Oximetry 97 93 L 94 L 05/20/18 13:15 05/20/18 13:30 05/20/18 14:30 Temperature Pulse Rate 111 H 111 H 112 H Respiratory Rate 18 18 18 Blood Pressure 130/96 H 111/72 109/65 Pulse Oximetry 92 L 93 L 93 L 05/20/18 15:15 05/20/18 16:00 05/20/18 20:00 Temperature 98 F 97.4 F L 97.4 F L Pulse Rate 115 H 111 H 121 H Respiratory Rate 18 18 18 Blood Pressure 108/73 124/70 156/96 H Pulse Oximetry 93 L 93 L 94 L 05/21/18 00:00 05/21/18 07:00 05/21/18 07:37 Temperature 97.3 F L 98.1 F Pulse Rate 102 H 118 H Respiratory Rate 18 12 18 Blood Pressure 142/84 H 117/71 Pulse Oximetry 94 L 95 Intake & Output 05/20/18 05/21/18 05/21/18 18:59 06:59 18:59 Intake Total 1340 / 1340 1340 / 1340 100 / 100 Output Total 280 / 280 Balance 1060 / 1060 1340 / 1340 100 / 100 Intake: IV 100 / 100 1100 / 1100 100 / 100 NS + KCl 20 mEq Inj 1,000 ML @ 1000 / 1000 100 mls/hr IV.CONT .Q10H [facility] Rx #:[id number] Ancef Inj 1,000 MG In NS Inj 100 / 100 100 / 100 100 / 100 100 ML @ 200 mls/hr IV.SIG Q8H [facility] Rx#:[id number] Oral 240 / 240 240 / 240 Anesthesia Amount 1000 / 1000 Output: Urine 100 / 100 Estimated Blood Loss 30 / 30 Urine Amount (Catheter) 150 / 150 Coude 150 / 150 Other: Date of Last Bowel Movement 05/19/18 05/19/18 05/20/18 Narrative: a&o x 3 CN intact motor 5/5 UE/LE incisions c/d/i - Urinary Catheter Management Coude Cath placed during this visit: no Assessment and Plan - Plan 67yoM pod#1 NPH VPS placement d/c home f/u with [facility] 6 weeks
[2018-05-21 12:36] VITALS: BP 122/80; PULSE 95; TEMP 98; O2SAT 100
--- NOTE | 2018-05-23 20:16 | ECG ---
Date Performed: 05/20/2018 Time Performed: 07:31:37 PTAGE: 67 years EKG: ATRIAL FIBRILLATION MINIMAL ST DEPRESSION When compared to previous tracing, the rate has s lowed. ABNORMAL RHYTHM ECG PREVIOUS TRACING : 04/19/2018 14.35 DOCTOR: Kashmir Eckert Interpretating Date/Time 05/23/2018 20:15:56
== END 2018-05-21 13:59 | disposition home or self-care (01) ==
LOC: HSDI 05:49 → N05 16:17
PROVIDERS: ADMIT Neurological Surgery; ATTEND Neurological Surgery